=== PATIENT | male | born 1990 | race Caucasian/White ===

== ENCOUNTER 2023-09-11 16:30 | Emergency (ER) | payer OTHER ==
[~2023-09-11] VITALS: Ht 162.6 cm; Wt 63.5 kg
== END 2023-09-11 18:41 | disposition home or self-care (01) ==
LOC: ER 16:30
DX: H60.8X2 Other otitis externa, left ear (principal)

== ENCOUNTER 2025-05-20 11:46 | Emergency (ER) | payer OTHER ==
[~2025-05-20] VITALS: Ht 154.9 cm; Wt 72.6 kg
[2025-05-20 12:21] VITALS: BP 150/78; O2SAT 99
[2025-05-20] MEDS ORDERED: ONDANSETRON HCL 2 MG/ML VIAL IV STA (13:10)
[2025-05-20] MEDS ORDERED: TAMSULOSIN HCL 0.4 MG CAP PO ONE ×2 (13:15→14:30)
[2025-05-20] MEDS ORDERED: MORPHINE SULFATE 4 MG/ML VIAL IV ONE (13:15)
[2025-05-20 14:43] LABS: PH,URINE 6.5 (5.0-8.0); URINE APPEARANCE Cloudy; URINE BILIRRUBIN Small (NEGATIVE); URINE BLOOD Large; URINE COLOR Orange; URINE GLUCOSE Negative (NEGATIVE); URINE KETONE Negative (NEGATIVE); URINE LEUKOCYTE Small; URINE NITRATE Negative; URINE PROTEIN 30 (NEGATIVE); URINE UROBILINOGEN 0.2 E.U./dl
[2025-05-20 14:45] LABS: BASO % 0.4 % (0.1-1.2); EOS # 0.06 (0.04-0.54); EOS % 0.5 % (0.7-7.0); HEMATOCRIT 45.7 % (40.1-51.0); HEMOGLOBIN 15.9 g/dL (13.7-17.5); LYMPH # 1.98 (1.18-3.74); LYMPH % 16.2 % (19.3-53.1); MEAN CORPUSCULAR HEMOGLOBIN 30.6 pg (25.6-32.2); MONO # 0.71 (0.24-0.82); MONO % 5.8 % (4.7-12.5); NEUT # 9.38 (1.56-6.13); NEUT % 76.4 % (34.0-71.1); PLATELET COUNT 295 K/uL (163-369); RED CELL DISTRIBUTION WIDTH 12.4 % (11.6-14.4)
[2025-05-20 14:46] LABS: URINE BACTERIA 124.7 uL (0.0-1933); URINE EPITHELIAL CELLS 2.4 uL (0.0-38.8)
[2025-05-20 15:05] LABS: URINE CAST 0.14 uL (0.0-1.40); URINE RBC > 10558.9 uL (0.0-20.8)
[2025-05-20 15:06] LABS: CALCIUM 9.8 mg/dL (8.5-10.1); CREATININE SERUM 1.03 mg/dL (0.70-1.30); GFR 82.67; POTASSIUM 3.92 mEq/L (3.5-5.1)
== END 2025-05-20 16:48 | disposition home or self-care (01) ==
LOC: ER 11:46
PROVIDERS: Emergency Medicine
DX: N23 Unspecified renal colic (principal); N13.39 Other hydronephrosis; N20.2 Calculus of kidney with calculus of ureter

== ENCOUNTER 2025-06-25 10:26 | Emergency (ER) | payer OTHER ==
[~2025-06-25] VITALS: Ht 154.9 cm; Wt 72.6 kg
[2025-06-25] MEDS ORDERED: IPRATROPIUM/ALBUTEROL SULFATE 3 ML AMPUL.NEB IH SCH (12:00)
[2025-06-25 12:38] LABS: BASO % 0.3 % (0.1-1.2); EOS # 0.03 (0.04-0.54); EOS % 0.5 % (0.7-7.0); LYMPH # 2.32 (1.18-3.74); LYMPH % 38.0 % (19.3-53.1); MEAN PLATELET VOLUME 9.70 fl (9.4-12.4); MONO # 0.78 (0.24-0.82); NEUT # 2.94 (1.56-6.13); NEUT % 48.2 % (34.0-71.1); RED CELL DISTRIBUTION WIDTH 12.5 % (11.6-14.4)
[2025-06-25 12:42] LABS: MONO % 12.8 % (4.7-12.5)
[2025-06-25 13:00] LABS: COVID-19 AG NEGATIVE (NEGATIVE)
[2025-06-25] MEDS ORDERED: GILTUSS HONEY118 ML PO (15:57)
[2025-06-25] MEDS ORDERED: ACETAMINOPHEN500 M1 PO (16:30)
== END 2025-06-25 16:55 | disposition home or self-care (01) ==
LOC: ER 10:26
PROVIDERS: Preventive Medicine Public Health & General Preventive Medicine
DX: B34.9 Viral infection, unspecified (principal); J45.909 Unspecified asthma, uncomplicated; Z20.822 Contact with and (suspected) exposure to COVID-19

== ENCOUNTER 2025-08-21 09:48 | Outpatient (CLI) | payer OTHER ==
[~2025-08-21 09:48] MED LIST: ACETAMINOPHEN500 M1 PO; GILTUSS HONEY118 ML PO
[2025-08-21 11:03] LABS: ALT/SGPT 38.0 U/L (12-78); AST/SGOT 26.0 U/L (15-37); BILIRUBIN TOTAL 0.48 mg/dL (0.3-1.2); BUN CREA RATIO 17.0 (7.0-25.0); CREATININE SERUM 0.93 mg/dL (0.70-1.30); GFR 93.01; GLOBULINA 3.4 G/DL (2.4-3.5); GLUCOSE FASTING 89.0 mg/dL (65-100); OSMOLALITY SERUM 284.0 MOSM/KG (275-295)
== END 2025-08-21 09:58 | disposition home or self-care (01) ==
LOC: LAB 09:48
DX: Q44.6 Cystic disease of liver (principal); R10.13 Epigastric pain

== ENCOUNTER 2025-08-23 08:29 | Outpatient (CLI) | payer OTHER | END 2025-08-23 08:34 | disposition home or self-care (01) | LOC: SONOGRAMA 08:29 | PROVIDERS: ATTEND Internal Medicine Gastroenterology | DX: Q44.6 Cystic disease of liver (principal); R10.13 Epigastric pain ==